=== PATIENT | male | born 1960 | race Caucasian/White ===

== ENCOUNTER 2020-07-15 09:49 | Emergency (ER) | payer MEDICARE ==
[~2020-07-15] VITALS: Ht 172.7 cm; Wt 74.8 kg
[~2020-07-15 09:49] MED LIST: CEPH500 PO; FLUSAL2505 IH; OXYACE10 PO; OXYACE5T PO; PROACE100 PO; PROM25 PO; RXOXYACE PO
== END 2020-07-15 11:15 | disposition home or self-care (01) ==
LOC: ER 09:49
DX: Z76.0 Encounter for issue of repeat prescription (principal); G89.29 Other chronic pain; M54.2 Cervicalgia; F17.200 Nicotine dependence, unspecified, uncomplicated; Z79.899 Other long term (current) drug therapy
CPT/HCPCS: 99282

== ENCOUNTER 2020-07-18 08:11 | Emergency (ER) | payer MEDICARE ==
[~2020-07-18] VITALS: Ht 172.7 cm; Wt 72.6 kg
[2020-07-18] MEDS ORDERED: BELBUCA450 MCG BC (09:07)
== END 2020-07-18 10:10 | disposition home or self-care (01) ==
LOC: ER 08:11
DX: G89.29 Other chronic pain (principal); M54.2 Cervicalgia; Z88.8 Allergy status to other drugs, medicaments and biological substances; Z79.899 Other long term (current) drug therapy; J45.909 Unspecified asthma, uncomplicated; F17.200 Nicotine dependence, unspecified, uncomplicated
CPT/HCPCS: 99282; J0572